=== PATIENT | female | born 1995 | race Caucasian/White ===

== ENCOUNTER 2019-02-18 22:58 | Emergency (ER) | payer BC, OTHER ==
[2019-02-18 23:07] VITALS: PULSE 78; RESP 18
[2019-02-19 01:02] LABS: Appearance,Urine Clear (Clear); Bacteria,Urine Rare /hpf; Bilirubin,Urine Negative (Negative); Blood,Urine Negative (Negative); Color,Urine Light Yellow; Glucose,Urine (UA) Negative (Negative); Ketones,Urine Negative (Negative); Leukocyte Esterase,Urine Small (Negative); Mucus,Urine Rare /hpf; Nitrite,Urine Negative (Negative); PH, Urine 7.5 (5.0-8.0); Protein,Urine Negative (Negative); RBC,Urine 1 /hpf (0-5); Squamous Epithelial Cell,Urine 1 /hpf (0-4); Urobilinogen,Urine <2.0 mg/dL (<2.0)
[2019-02-19] MEDS ORDERED: FLUCONAZOLE 150 MG TAB PO STA (01:10)
--- NOTE | 2019-02-19 01:12 | ED ---
General Adult HPI - General Chief complaint: Urogenital Stated complaint: Female /Pain Time Seen by Provider: 02/18/19 23:09 Source: patient Mode of arrival: ambulatory Limitations: no limitations - History of Present Illness Initial comments: 23-year-old female patient presents the emergency department today for evaluation of external vulvar itching, burning, and thick white vaginal discharge. Patient states that this started 2-3 days ago. Patient states that she started to feel more burning sensation today especially with urination. Patient denies any recent antibiotic or steroid use. Denies any history of yeast infection. States her as a possibility she may have an STD. She denies any chance of . Last menstrual period was 3 weeks ago. Patient denies any recent rash, fever, chills, shortness breath, chest pain, abdominal pain, nausea, vomiting, diarrhea, constipation, back pain, numbness, tingling, dizziness, weakness, headache, visual changes, or any other complaints. - Related Data Home Medications Medication Instructions Recorded Confirmed Pnv,Calcium 72/Iron/Folic Acid 1 tab PO DAILY 02/10/15 06/02/15 [Pnv Plus Multivit Tab] Previous Rx's Medication Instructions Recorded Sulfamethox-Tmp 800-160Mg [Bactrim 2 each PO Q12HR #56 tab 06/02/15 Ds] Fluconazole [Diflucan] 150 mg PO ONCE #1 tab 02/19/19 Allergies Allergy/AdvReac Type Severity Reaction Status Date / Time No Known Allergies Allergy Verified 02/18/19 23:07 Review of Systems ROS Statement: Those systems with pertinent positive or pertinent negative responses have been documented in the HPI. ROS Other: All systems not noted in ROS Statement are negative. Past Medical History Past Medical History: No Reported History History of Any Multi-Drug Resistant Organisms: MRSA Date of last positivie culture/infection: 01/17/13 MDRO Source:: MRSA on left side and on right pearce per patient Past Surgical History: Section Additional Past Surgical History / Comment(s): drainage of a right ovarian cyst Past Anesthesia/Blood Transfusion Reactions: No Reported Reaction Past Psychological History: No Psychological Hx Reported Smoking Status: Current every day smoker Past Alcohol Use History: None Reported Past Drug Use History: None Reported - Past Family History Mother Family Medical History: No Reported History General Exam Limitations: no limitations General appearance: alert, in no apparent distress, other (Physical well- developed, well-nourished adult female patient in no acute distress. Vital signs upon presentation are temperature 98.4F, pulse 78, respirations 18, blood pressure 123/76, pulse ox 99% on room air.) Eye exam: Present: normal appearance, PERRL, EOMI. Absent: scleral icterus, conjunctival injection, periorbital swelling ENT exam: Present: normal exam, normal oropharynx, mucous membranes moist Respiratory exam: Present: normal lung sounds bilaterally. Absent: respiratory distress, wheezes, rales, rhonchi, stridor Cardiovascular Exam: Present: regular rate, normal rhythm, normal heart sounds. Absent: systolic murmur, diastolic murmur, rubs, gallop, clicks GI/Abdominal exam: Present: soft, normal bowel sounds. Absent: distended, tenderness, guarding, rebound, rigid External exam: Present: erythema. Absent: swelling, lesions Speculum exam: Present: vaginal discharge (Thick, white vaginal discharge, cottage cheese appearance), other (No cervical erythema). Absent: normal speculum exam, cervical discharge, vaginal bleeding By manual exam: Present: normal by manual exam. Absent: cervical motion t enderness, adnexal tenderness Back exam: Present: normal inspection. Absent: CVA tenderness (R), CVA tenderness (L) Neurological exam: Present: alert, oriented X3, CN II-XII intact Psychiatric exam: Present: normal affect, normal mood Skin exam: Present: warm, dry, intact, normal color. Absent: rash Course Vital Signs 02/18/19 02/19/19 23:04 01:27 Temperature 98.4 F 98.2 F Pulse Rate 78 78 Respiratory 18 18 Rate Blood Pressure 123/76 117/75 O2 Sat by Pulse 99 97 Oximetry Medical Decision Making - Medical Decision Making 23-year-old female patient presents to the emergency department today for evaluation of external vulvar itching and burning as well as quite vaginal discharge. Physical examination did reveal erythema to the labia minora. Speculum exam did reveal evidence of cottage cheese like vaginal discharge. No cervicitis. There is no cervical motion tenderness no adnexal tenderness. She is afebrile. HCG is negative. Trichomonas test was negative and remaining genital cultures are pending. Patient symptoms are consistent with yeast infection. She'll be given a dose of Diflucan here in the emergency department. She'll be given a prescription for repeat dose for 3 days from now. She is instructed to follow-up with her ECONOMICS LECTURER for recheck as soon as possible. Return parameters were discussed in detail. She verbalizes understanding and agrees with this plan. - Lab Data Lab Results 02/19/19 02/19/19 02/19/19 Range/Units 00:00 00:00 00:00 Urine Color Light Yellow Urine Appearance Clear (Clear) Urine pH 7.5 (5.0-8.0) Ur Specific [place] 1.010 (1.001-1.035) Urine Protein Negative (Negative) Urine Glucose (UA) Negative (Negative) Urine Ketones Negative (Negative) Urine Blood Negative (Negative) Urine Nitrite Negative (Negative) Urine Bilirubin Negative (Negative) Urine Urobilinogen <2.0 (<2.0) mg/dL Ur Leukocyte Esterase Small H (Negative) Urine RBC 1 (0-5) /hpf Urine WBC 1 (0-5) /hpf Ur Squamous Epith Cells 1 (0-4) /hpf Urine Bacteria Rare H (None) /hpf Urine Mucus Rare H (None) /hpf Urine HCG, Qual Not Detected (Not Detectd) Trichomonas Ag (Rapid) Negative (Negative) Disposition Clinical Impression: Vulvovaginal candidiasis Disposition: HOME SELF-CARE Condition: Good Instructions (If sedation given, give patient instructions): Yeast Infection (ED) Additional Instructions: Take medications as directed. Avoid itching the area. He can purchase topical [id number] anti-itch cream. Take cool baths and apply cool compresses for stinging sensation. Return to the emergency department immediately for any new, worsening, or concerning symptoms. Prescriptions: Fluconazole [Diflucan] 150 mg PO ONCE #1 tab Is patient prescribed a controlled substance at d/c from ED?: No Referrals: None,Stated [Primary Care Provider] - 1-2 days Time of Disposition: 01:12
[2019-02-19 01:29] VITALS: BP 117/75; TEMP 98.2
[2019-02-20 16:32] LABS: C. trachomatis,PCR Negative (Neg,Equiv); Chlamydia trachomatis Source Vagina; N. gonorrhoeae,PCR Negative (Neg,Equiv); Neisseria Source Vagina
== END 2019-02-19 01:29 | disposition home or self-care (01) ==
LOC: EC 22:58
DX: B37.3 Candidiasis of vulva and vagina (principal); F17.200 Nicotine dependence, unspecified, uncomplicated; Z79.899 Other long term (current) drug therapy; Z87.42 Personal history of other diseases of the female genital tract; Z98.890 Other specified postprocedural states
CPT/HCPCS: 81001; 81025; 87070; 87205; 87491; 87591; 87808; 99283

== ENCOUNTER 2019-02-23 15:39 | Emergency (ER) | payer OTHER ==
[2019-02-23 17:13] VITALS: RESP 16
[2019-02-23 18:25] LABS: Appearance,Urine Clear (Clear); Bilirubin,Urine Negative (Negative); Blood,Urine Negative (Negative); Color,Urine Light Yellow; Glucose,Urine (UA) Negative (Negative); Ketones,Urine Negative (Negative); Leukocyte Esterase,Urine Negative (Negative); Nitrite,Urine Negative (Negative); PH, Urine 6.5 (5.0-8.0); Protein,Urine Negative (Negative); Specific Gravity,Urine 1.018 (1.001-1.035); Urobilinogen,Urine <2.0 mg/dL (<2.0)
[2019-02-23 18:28] LABS: Basophils # (A) 0.1 k/uL (0-0.2); Basophils % (A) 1 %; Eosinophils # (A) 0.4 k/uL (0-0.7); Eosinophils % (A) 5 %; HCT 46.1 % (34.0-46.0); HGB 15.4 gm/dL (11.4-16.0); Lymphocytes # (A) 2.8 k/uL (1.0-4.8); Lymphocytes % (A) 31 %; MCH 30.2 pg (25.0-35.0); MCHC 33.4 g/dL (31.0-37.0); MCV 90.4 fL (80.0-100.0); Mean Platelet Volume 7.9; Monocytes # (A) 0.5 k/uL (0-1.0); Monocytes % (A) 6 %; Neutrophils % (A) 56 %; Platelet Count 208 k/uL (150-450); RDW 13.7 % (11.5-15.5)
[2019-02-23 18:43] LABS: ALT 17 U/L (9-52); AST 17 U/L (14-36); African American GFR (CKD) >90 (>60 ml/min/1.73 sqM); Albumin 4.9 g/dL (3.5-5.0); Alkaline Phosphatase 54 U/L (38-126); Amylase 68 U/L (30-110); Anion Gap 11 mmol/L; Blood Urea Nitrogen 17 mg/dL (7-17); Calcium 10.2 mg/dL (8.4-10.2); Carbon Dioxide 26 mmol/L (22-30); Chloride 103 mmol/L (98-107); Glucose 84 mg/dL (74-99); Lipase 123 U/L (23-300); Potassium 4.4 mmol/L (3.5-5.1); Sodium 140 mmol/L (137-145); Total Bilirubin 0.5 mg/dL (0.2-1.3); Total Protein 7.9 g/dL (6.3-8.2)
[2019-02-23] MEDS ORDERED: MORPHINE SULFATE 4 MG/ML SYRINGE IV STA (18:46)
[2019-02-23 20:21] VITALS: TEMP 98.2
--- NOTE | 2019-02-23 22:23 | US ---
EXAMINATION TYPE: US transvaginal pelvis plus Doppler DATE OF EXAM: 02/23/2019 COMPARISON: None CLINICAL HISTORY: 22-year-old female with pain. Left-sided pelvic pain x 1 week. Worse today. No blee ding. 1 . Cyst drained 2012. . TECHNIQUE: Transvaginal (TV). Color Doppler and spectral waveform analysis of the ovarian arteries and veins. Date of LMP: 01/27/2019 FINDINGS: EXAM MEASUREMENTS: Uterus: 8.9 x 4.5 x 4.0 cm Endometrial Stripe: 1.22 cm Right Ovary: 3.7 x 2.6 x 1.7 cm for a volume of 8.4 mL. Left Ovary: 4.9 x 4.5 x 4.7 cm for a volume of 54.2 mL. 1. Uterus: Anteverted. There is a 4 mm calcification along the lower uterine segment near the straig ht, possible dystrophic calcification as a sequela of prior infection or surgery. Control Cabinet Assembler notes: ?Prominent vessels seen left of uterus. 5 mm cervical nabothian cysts noted. 2. Endometrium: Normal for secretory phase of the menstrual cycle. 3. Right Ovary: appears wnl, follicles seen 4. Left Ovary: Complex area with debris seen within left ovary measurin.4 x 4.0 x 4.3 cm. Areas of echogenicity, reticular change in hypoechogenicity are demonstrated. Spectral, color and waveform doppler imaging shows good arterial and venous flow within the ovaries ; there is no evidence for ovarian torsion. 5. Bilateral Adnexa: Complex area seen involving left ovary as mentioned above. 6. Posterior cul-de-sac: minimal fluid seen. IMPRESSION: 1. No sonographic evidence for ovarian torsion. 2. Left ovary enlarged secondary to a complex lesion measuring 4.4 cm. Given some internal reticulati ons and areas of echogenicity, a hemorrhagic cyst is suspected. Follow-up in 6-8 weeks to assess for involution. If the finding persists, an ovarian dermoid would be an additional differential considera tion.
--- NOTE | 2019-02-23 23:03 | ED ---
General Adult HPI - General Chief complaint: Abdominal Pain Stated complaint: female Time Seen by Provider: 02/23/19 18:40 Source: patient, RN notes reviewed, old records reviewed Mode of arrival: ambulatory Limitations: no limitations - History of Present Illness Initial comments: 23-year-old female patient, the past no history of right ovarian cyst drainage is present ED with left adnexal pain. Patient reports that this has been going on for 1 day. Patient reports that this feels similar to a ovarian cyst that she had on her right side. Patient denies abdominal pain. Patient denies any nausea vomiting or diarrhea. Denies any chest pain shortness breath denies any other complaints. Patient states that she is not . Denies any concern for STD or urinary tract infection. Systemic: Pt denies fatigue, fever/chills, rash. Pt denies weakness, night sweats, weight loss. Neuro: Pt denies headache, visual disturbances, syncope or pre-syncope. HEENT: Pt denies ocular discharge or irritation, otalgia, rhinorrhea, pharyng itis or notable lymphadenopathy. Cardiopulmonary: Pt denies chest pain, SOB, heart palpitations, dyspnea on exertion. Abdominal/GI: Pt denies abdominal pain, n/v/d. : Pt denies dysuria, burning w/ urination, frequency/urgency. Denies new onset urinary or bowel incontinence. MSK: Pt denies myalgia, loss of strength or function in extremities. Neuro: Pt denies new onset weakness, paresthesias. - Related Data Home Medications Medication Instructions Recorded Confirmed Pnv,Calcium 72/Iron/Folic Acid 1 tab PO DAILY 02/10/15 06/02/15 [Pnv Plus Multivit Tab] Previous Rx's Medication Instructions Recorded Sulfamethox-Tmp 800-160Mg [Bactrim 2 each PO Q12HR #56 tab 06/02/15 Ds] Fluconazole [Diflucan] 150 mg PO ONCE #1 tab 02/19/19 Allergies Allergy/AdvReac Type Severity Reaction Status Date / Time No Known Allergies Allergy Verified 02/23/19 17:13 Review of Systems ROS Statement: Those systems with pertinent positive or pertinent negative responses have been documented in the HPI. ROS Other: All systems not noted in ROS Statement are negative. Past Medical History Past Medical History: No Reported History History of Any Multi-Drug Resistant Organisms: MRSA Date of last positivie culture/infection: 01/17/13 MDRO Source:: MRSA on left side and on right pearce per patient Past Surgical History: Section Additional Past Surgical History / Comment(s): drainage of a right ovarian cyst Past Anesthesia/Blood Transfusion Reactions: No Reported Reaction Past Psychological History: No Psychological Hx Reported Smoking Status: Current every day smoker Past Alcohol Use History: None Reported Past Drug Use History: None Reported - Past Family History Mother Family Medical History: No Reported History General Exam - General Exam Comments Initial Comments: Constitutional: NAD, AOX3, Pt has pleasant affect. HEENT: NC/AT, trachea midline, neck supple, no lymphadenopathy. Posterior pharynx non erythematous, without exudates. External ears appear normal, without discharge. Mucous membranes moist. Eyes PERRLA, EOM intact. There is no scleral icterus. No pallor noted. Cardiopulmonary: RRR, no murmurs, rubs or gallops, no JVD noted. Lungs CTAB in anterior and posterior bond. No peripheral edema. Abdominal exam: Abdomen soft and non-distended. Abdomen non-tender to palpation in all 4 quadrants. Left adnexal region mildly tender to palpation. Right adnexal region nontender to palpation. No guarding or rigidity no ecchymoses. Bowel sounds active in LLQ. No hepatosplenomegaly. No ecchymosis Neuro: CN II-XII grossly intact. No nuchal rigidity. No raccon eyes, no lambert sign, no hemotympanum. No cervical spinal tenderness. MSK: No posterior calf tenderness bilaterally, homans sign negative bilaterally. Posterior tibialis and radial pulse +2 bilaterally. Sensation intact in upper and lower extremities. Full active ROM in upper and lower extremities, 5/5 stregnth. Limitations: no limitations Course Vital Signs 02/23/19 02/23/19 02/23/19 17:11 20:13 23:11 Temperature 99.1 F 98.2 F 98.2 F Pulse Rate 68 55 L 68 Respiratory 16 16 16 Rate Blood Pressure 119/74 110/70 122/77 O2 Sat by Pulse 100 99 99 Oximetry Medical Decision Making - Medical Decision Making 23-year-old female patient presents ED with 1 day of left adnexal pain. Patient vital signs stable, afebrile. Physical exam displayed left adnexal region mildly tender to palpation. Laboratory investigations are non-impressive, hCG was negative. UA was negative. Transvaginal ultrasound displayed a 4 cm left hemorrhagic cyst. No signs of torsion. Patient will be discharged with outpatient TRANSMISSION WORKER follow-up. Return precautions discused, pt verbalize understanding. Case discussed with Dr. Bower. - Lab Data Result diagrams: 02/23/19 18:00 02/23/19 18:00 Lab Results 02/23/19 02/23/19 02/23/19 Range/Units 18:00 18:00 18:00 WBC 9.0 (3.8-10.6) k/uL RBC 5.10 (3.80-5.40) m/uL Hgb 15.4 (11.4-16.0) gm/dL Hct 46.1 H (34.0-46.0) % MCV 90.4 (80.0-100.0) fL MCH 30.2 (25.0-35.0) pg MCHC 33.4 (31.0-37.0) g/dL RDW 13.7 (11.5-15.5) % Plt Count 208 (150-450) k/uL Neutrophils % 56 % Lymphocytes % 31 % Monocytes % 6 % Eosinophils % 5 % Basophils % 1 % Neutrophils # 5.0 (1.3-7.7) k/uL Lymphocytes # 2.8 (1.0-4.8) k/uL Monocytes # 0.5 (0-1.0) k/uL Eosinophils # 0.4 (0-0.7) k/uL Basophils # 0.1 (0-0.2) k/uL Sodium 140 (137-145) mmol/L Potassium 4.4 (3.5-5.1) mmol/L Chloride 103 (98-107) mmol/L Carbon Dioxide 26 (22-30) mmol/L Anion Gap 11 mmol/L BUN 17 (7-17) mg/dL Creatinine 0.77 (0.52-1.04) mg/dL Est GFR (CKD-EPI)AfAm >90 (>60 ml/min/1.73 sqM) Est GFR (CKD-EPI)NonAf >90 (>60 ml/min/1.73 sqM) Glucose 84 (74-99) mg/dL Calcium 10.2 (8.4-10.2) mg/dL Total Bilirubin 0.5 (0.2-1.3) mg/dL AST 17 (14-36) U/L ALT 17 (9-52) U/L Alkaline Phosphatase 54 (38-126) U/L Total Protein 7.9 (6.3-8.2) g/dL Albumin 4.9 (3.5-5.0) g/dL Amylase 68 (30-110) U/L Lipase 123 (23-300) U/L Urine Color Light Yellow Urine Appearance Clear (Clear) Urine pH 6.5 (5.0-8.0) Ur Specific [place] 1.018 (1.001-1.035) Urine Protein Negative (Negative) Urine Glucose (UA) Negative (Negative) Urine Ketones Negative (Negative) Urine Blood Negative (Negative) Urine Nitrite Negative (Negative) Urine Bilirubin Negative (Negative) Urine Urobilinogen <2.0 (<2.0) mg/dL Ur Leukocyte Esterase Negative (Negative) Urine HCG, Qual (Not Detectd) 02/23/19 Range/Units 18:00 WBC (3.8-10.6) k/uL RBC (3.80-5.40) m/uL Hgb (11.4-16.0) gm/dL Hct (34.0-46.0) % MCV (80.0-100.0) fL MCH (25.0-35.0) pg MCHC (31.0-37.0) g/dL RDW (11.5-15.5) % Plt Count (150-450) k/uL Neutrophils % % Lymphocytes % % Monocytes % % Eosinophils % % Basophils % % Neutrophils # (1.3-7.7) k/uL Lymphocytes # (1.0-4.8) k/uL Monocytes # (0-1.0) k/uL Eosinophils # (0-0.7) k/uL Basophils # (0-0.2) k/uL Sodium (137-145) mmol/L Potassium (3.5-5.1) mmol/L Chloride (98-107) mmol/L Carbon Dioxide (22-30) mmol/L Anion Gap mmol/L BUN (7-17) mg/dL Creatinine (0.52-1.04) mg/dL Est GFR (CKD-EPI)AfAm (>60 ml/min/1.73 sqM) Est GFR (CKD-EPI)NonAf (>60 ml/min/1.73 sqM) Glucose (74-99) mg/dL Calcium (8.4-10.2) mg/dL Total Bilirubin (0.2-1.3) mg/dL AST (14-36) U/L ALT (9-52) U/L Alkaline Phosphatase (38-126) U/L Total Protein (6.3-8.2) g/dL Albumin (3.5-5.0) g/dL Amylase (30-110) U/L Lipase (23-300) U/L Urine Color Urine Appearance (Clear) Urine pH (5.0-8.0) Ur Specific [place] (1.001-1.035) Urine Protein (Negative) Urine Glucose (UA) (Negative) Urine Ketones (Negative) Urine Blood (Negative) Urine Nitrite (Negative) Urine Bilirubin (Negative) Urine Urobilinogen (<2.0) mg/dL Ur Leukocyte Esterase (Negative) Urine HCG, Qual Not Detected (Not Detectd) Disposition Clinical Impression: Ovarian cyst Disposition: HOME SELF-CARE Condition: Stable Instructions (If sedation given, give patient instructions): Ovarian Cyst (ED) Additional Instructions: Patient to adhere to previously discussed treatment plan and will take medication(s) as directed. Patient to follow up with PCP in 1-2 days. Patient to return to ED if symptoms do not improve. Follow-up with TRANSMISSION WORKER tomorrow. Use ibuprofen as needed for pain. Return to ER if condition worsens in any way. Is patient prescribed a controlled substance at d/c from ED?: No Referrals: None,Stated [Primary Care Provider] - 1-2 days Kaity Zavaleta DO [Doctor of Osteopathic Medicine] - 1-2 days
[2019-02-23 23:12] VITALS: BP 122/77; PULSE 68
== END 2019-02-23 23:12 | disposition home or self-care (01) ==
LOC: EC 15:39
DX: N83.202 Unspecified ovarian cyst, left side (principal); F17.200 Nicotine dependence, unspecified, uncomplicated
CPT/HCPCS: 36415; 80053; 82150; 83690; 85025; 81003; 81025; 93975; 76830; 99285; 96374; J2270

== ENCOUNTER 2019-02-25 15:09 | Emergency (ER) | payer OTHER ==
[2019-02-25 15:30] VITALS: RESP 18; TEMP 99.2
[2019-02-25] MEDS ORDERED: Acetaminophen-Codeine 300-30mg TAB PO STA (16:58)
[2019-02-25] MEDS ORDERED: ACET/COD 300 MG/30 MG STARTER PACK 6 TAB BTL PO STA (16:58)
[2019-02-25] MEDS ORDERED: KETOROLAC 60 MG/2 ML VIAL IM STA (16:58)
--- NOTE | 2019-02-25 17:00 | ED ---
Abdominal Pain HPI - General Chief Complaint: Abdominal Pain Stated Complaint: Ovarian cyst Time Seen by Provider: 02/25/19 16:14 Source: patient, RN notes reviewed, old records reviewed Mode of arrival: ambulatory Limitations: no limitations - History of Present Illness Initial Comments: This is a 23-year-old female the ER for evaluation. She presents today for evaluation regards to abdominal pain recurrent or persistent abdominal pain related to ovarian cyst hemorrhagic ovarian cyst known. 2 ER visits in the last week for evaluation of same. Unable to get to see OB. Patient states the pain is making her have difficulty with work. On menses no document no recent sexual activity. No dysuria or difficulty with bowel movements. Patient a Motrin at home, no other complaints MD Complaint: abdominal pain (Suprapubic just like prior evaluations concerning ovarian cyst) -: week(s) Location: suprapubic Radiation: suprapubic Migration to: suprapubic Severity: mild Severity scale (1-10): 3 Quality: aching Consistency: constant Improves With: nothing Worsens With: nothing Associated Symptoms: nausea Treatments Prior to Arrival: NSAIDs - Related Data Home Medications Medication Instructions Recorded Confirmed Ibuprofen [Motrin] 800 mg PO TID PRN 02/25/19 02/25/19 Allergies Allergy/AdvReac Type Severity Reaction Status Date / Time No Known Allergies Allergy Verified 02/25/19 15:44 Review of Systems ROS Statement: Those systems with pertinent positive or pertinent negative responses have been documented in the HPI. ROS Other: All systems not noted in ROS Statement are negative. Past Medical History Past Medical History: No Reported History History of Any Multi-Drug Resistant Organisms: MRSA Date of last positivie culture/infection: 01/17/13 MDRO Source:: MRSA on left side and on right pearce per patient Past Surgical History: Section Additional Past Surgical History / Comment(s): drainage of a right ovarian cyst Past Anesthesia/Blood Transfusion Reactions: No Reported Reaction Past Psychological History: No Psychological Hx Reported Smoking Status: Current every day smoker Past Alcohol Use History: None Reported Past Drug Use History: None Reported - Past Family History Mother Family Medical History: No Reported History General Exam Limitations: no limitations General appearance: alert, in no apparent distress Head exam: Present: atraumatic, normocephalic, normal inspection Eye exam: Present: normal appearance, PERRL, EOMI. Absent: scleral icterus, conjunctival injection, periorbital swelling ENT exam: Present: normal exam, mucous membranes moist Neck exam: Present: normal inspection. Absent: tenderness, meningismus, lymphadenopathy Respiratory exam: Present: normal lung sounds bilaterally. Absent: respiratory distress, wheezes, rales, rhonchi, stridor Cardiovascular Exam: Present: regular rate, normal rhythm, normal heart sounds. Absent: systolic murmur, diastolic murmur, rubs, gallop, clicks GI/Abdominal exam: Present: soft, tenderness (Suprapubic tenderness), normal bowel sounds. Absent: distended, guarding, rebound, rigid Extremities exam: Present: normal inspection, full ROM, normal capillary refill. Absent: tenderness, pedal edema, joint swelling, calf tenderness Back exam: Present: normal inspection Neurological exam: Present: alert, oriented X3, CN II-XII intact Psychiatric exam: Present: normal affect, normal mood Skin exam: Present: warm, dry, intact, normal color. Absent: rash Course Vital Signs 02/25/19 15:26 Temperature 99.2 F Pulse Rate 91 Respiratory 18 Rate Blood Pressure 149/78 O2 Sat by Pulse 100 Oximetry - Reevaluation(s) Reevaluation #1: 02/25/19 16:59 Medical record is reviewed Reevaluation #2: 02/25/19 17:00 Patient has adequate pain control Medical Decision Making - Medical Decision Making 23 female the ER for evaluation. Patient has persistent pain from ovarian cyst hemorrhagic, will follow up with OB for definitive treatment. Disposition Clinical Impression: Ovarian cyst, Hemorrhagic ovarian cyst Disposition: HOME SELF-CARE Condition: Good Instructions (If sedation given, give patient instructions): Ovarian Cyst (ED), Ruptured Ovarian Cyst (ED) Is patient prescribed a controlled substance at d/c from ED?: No Referrals: None,Stated [Primary Care Provider] - 1-2 days
[2019-02-25 17:55] VITALS: BP 118/70; PULSE 72
== END 2019-02-25 17:54 | disposition home or self-care (01) ==
LOC: EC 15:09
DX: N83.201 Unspecified ovarian cyst, right side (principal); F17.200 Nicotine dependence, unspecified, uncomplicated; Z86.14 Personal history of Methicillin resistant Staphylococcus aureus infection
CPT/HCPCS: 99284; 96372; J1885

== ENCOUNTER → 2019-03-23 | Outpatient (CLI) | payer OTHER ==
[2019-03-23 13:50] LABS: Basophils % (A) 1 %; Eosinophils # (A) 0.4 k/uL (0-0.7); Eosinophils % (A) 5 %; HCT 45.2 % (34.0-46.0); HGB 15.2 gm/dL (11.4-16.0); Lymphocytes # (A) 2.3 k/uL (1.0-4.8); Lymphocytes % (A) 31 %; MCH 30.8 pg (25.0-35.0); MCHC 33.5 g/dL (31.0-37.0); MCV 91.8 fL (80.0-100.0); Mean Platelet Volume 7.8; Monocytes # (A) 0.4 k/uL (0-1.0); Monocytes % (A) 5 %; Neutrophils # (A) 4.2 k/uL (1.3-7.7); Neutrophils % (A) 56 %; Platelet Count 204 k/uL (150-450); RBC 4.93 m/uL (3.80-5.40); RDW 13.7 % (11.5-15.5); WBC 7.5 k/uL (3.8-10.6)
== END | disposition home or self-care (01) ==
LOC: LABWHC1 13:06
PROVIDERS: ATTEND Obstetrics & Gynecology
DX: Z01.812 Encounter for preprocedural laboratory examination (principal)
CPT/HCPCS: 36415; 85025

== ENCOUNTER 2019-04-02 08:06 | Day surgery (SDC) | payer OTHER ==
[2019-03-27 10:50] VITALS: BMI 22.1
--- NOTE | 2019-04-01 17:32 | P.HPOB ---
History of Present Illness H&P Date: 04/01/19 Chief Complaint: Left ovarian cyst 23-year-old presents for laparoscopic aspiration of left ovarian cyst. She's had laparoscopic surgery before for endometriosis and another endometrioma. I suspect this is an endometrioma and it needs to be drained. Review of Systems All systems: negative Constitutional: Denies chills, Denies fever Eyes: denies blurred vision, denies pain Ears, nose, mouth and throat: Denies headache, Denies sore throat Cardiovascular: Denies chest pain, Denies shortness of breath Respiratory: Denies cough Gastrointestinal: Denies abdominal pain, Denies diarrhea, Denies nausea, Denies vomiting Genitourinary: Denies dysuria, Denies hematuria Musculoskeletal: Denies myalgias Integumentary: Denies pruritus, Denies rash Neurological: Denies numbness, Denies weakness Psychiatric: Denies anxiety, Denies depression Endocrine: Denies fatigue, Denies weight change Past Medical History Past Medical History: No Reported History Additional Past Medical History / Comment(s): MIGRAINES, LEFT OVARIAN CYST. History of Any Multi-Drug Resistant Organisms: MRSA Date of last positivie culture/infection: 01/17/13 MDRO Source:: MRSA on left side , right pearce & face Past Surgical History: Adenoidectomy, Section, Tonsillectomy Additional Past Surgical History / Comment(s): drainage of a right ovarian cyst Past Anesthesia/Blood Transfusion Reactions: No Reported Reaction Past Psychological History: Anxiety, Depression Additional Psychological History / Comment(s): states anxiety and depression but no meds. Smoking Status: Current every day smoker Past Alcohol Use History: None Reported Additional Past Alcohol Use History / Comment(s): smokes 6 cigarettes per day, smoking since 18 years old. Past Drug Use History: None Reported - Past Family History Mother Family Medical History: No Reported History Medications and Allergies Home Medications Medication Instructions Recorded Confirmed Type Ibuprofen 200 mg PO DIRECTED PRN 03/27/19 03/27/19 History L.acidoph,Paracasei, B.lactis 1 each PO DAILY 03/27/19 03/27/19 History [Probiotic] Allergies Allergy/AdvReac Type Severity Reaction Status Date / Time No Known Allergies Allergy Verified 03/27/19 10:26 Exam Osteopathic Statement: *. No significant issues noted on an osteopathic structural exam other than those noted in the History and Physical/Consult. Heart: Regular rate and rhythm Lungs: Clear to auscultation bilaterally Abdomen: Soft, tender Extremities: Negative Homans sign Assessment and Plan (1) Left ovarian cyst Narrative/Plan: Suspect endometrioma Status: Acute Code(s): N83.202 - UNSPECIFIED OVARIAN CYST, LEFT SIDE SNOMED Code(s): 61379623 (2) Pelvic pain Status: Acute Code(s): R10.2 - PELVIC AND PERINEAL PAIN SNOMED Code(s): 44304182 Plan: 1. Laparoscopic aspiration of left ovarian cyst
[~2019-04-02 08:06] MED LIST: DEXAMETHASONE SOD PHOSPHATE 10 MG/ML 1 ML VIAL IV ONE; HYDROmorphone 0.5 MG/0.5 ML SYRINGE IVP PRN; LACTATED RINGERS 1,000 ML IV SCH; MIDAZOLAM 2 MG/2 ML VIAL IV PRN; ONDANSETRON 4 MG/2 ML VIAL IVP ONE; Pre Op ABX Message 1 EACH MISC MISCELLANE ONE
[2019-04-02] MEDS ORDERED: LIDOCAINE 1% 20 ML VIAL (10MG/ML) FOR IV START INTRADERMA ONE (08:26)
[2019-04-02] MEDS ORDERED: LACTATED RINGERS 1,000 ML IV ONE (08:30)
[2019-04-02] MEDS ORDERED: DEXAMETHASONE SOD PHOS (MDV) 100 MG/10 ML VIAL IVP ONE (08:30)
[2019-04-02] MEDS ORDERED: MIDAZOLAM 2 MG/2 ML VIAL ONE (09:00)
[2019-04-02] MEDS ORDERED: ROCURONIUM BROMIDE 10 MG/ML 10 ML VIAL IV ONE (09:00)
[2019-04-02] MEDS ORDERED: fentaNYL (PF) 50 MCG/ML 2 ML AMP ONE (09:00)
[2019-04-02] MEDS ORDERED: KETOROLAC 30 MG/ML 1 ML VIAL ONE (09:00)
[2019-04-02] MEDS ORDERED: PROPOFOL 10 MG/ML 20 ML VIAL IV ONE (09:00)
[2019-04-02] MEDS ORDERED: LIDOCAINE 1% INJ 10MG/ML (20 ML MDV) ONE (09:00)
[2019-04-02] MEDS ORDERED: GLYCOPYRROLATE 0.2 MG/ML 2 ML VIAL ONE (09:00)
[2019-04-02] MEDS ORDERED: NEOSTIGMINE 1 MG/ML 10 ML VIAL ONE (09:00)
[2019-04-02] MEDS ORDERED: BUPIVACAINE (PF) 0.25% 30 ML VIAL SQ ONE ×2 (09:32)
[2019-04-02 10:23] VITALS: TEMP 98.5
--- NOTE | 2019-04-02 10:28 | P.OP ---
Date of Procedure: 04/02/19 Preoperative Diagnosis: 1. Pelvic pain 2. left ovarian cyst-suspect endometrioma Postoperative Diagnosis: 1. Pelvic pain 2. endometriosis Procedure(s) Performed: Diagnostic laparoscopy with cauterization of endometriosis Anesthesia: [place] Surgeon: Kaity Zavaleta Estimated Blood Loss (ml): 5 IV fluids (ml): 500 Urine output (ml): 75 Pathology: none sent Condition: stable Disposition: PACU Operative Findings: Normal uterus, tubes, ovaries. The uterus sounded to 9 cm. No cysts were found on either ovary. A few filmy adhesions were noted in the right ovarian fossa connecting the right ovary to the peritoneum. Small amounts of endometriosis were seen in the bilateral ovarian fossa and on the right uterosacral ligament. These areas were cauterized with the Bovie. Description of Procedure: Patient is taken the operating room and general anesthesia was obtained without difficulty. She is prepped and draped in normal sterile fashion dorsal lithotomy position, legs placed in the Juan Jose stirrups. Bladder was drained of all urine. Weighted speculum placed in the vagina the anterior lip the cervix was grasped with single-tooth tenaculum. The uterus sounded to 9 cm and then the kroner manipulator was placed. Attention was then turned to the abdomen and gloves were changed. A 10 mm infraumbilical incision was made the scalpel and 10 mm optical trocar was placed under direct visualization. A 5 mm suprapubic incision was made and a 5 mm optical trocar was placed under direct visualization. Survey of the pelvis revealed a normal-appearing uterus, normal- appearing fallopian tubes, normal-appearing ovaries. There were no cysts on either ovary. Small amounts of endometriosis were seen in the bilateral ovarian fossa and on the right uterosacral ligament. These areas were cauterized with the hook cautery. All instruments were then removed from the abdomen and pelvis. The 10 mm infraumbilical incision was closed first with 0 Vicryl and the fascial layer and then 4-0 Vicryl subcuticular fashion. The 5 mm incision was closed with 4-0 Vicryl subcuticular fashion. Patient tolerated the procedure well. Sponge and instrument counts correct 2. She was taken to recovery in stable condition.
[2019-04-02 11:32] VITALS: RESP 18
[2019-04-02] MEDS ORDERED: Acetaminophen-Codeine 300-30mg TAB PO ONE (11:41)
[2019-04-02 11:53] VITALS: BP 113/71; PULSE 59
== END 2019-04-02 12:16 | disposition home or self-care (01) ==
LOC: OR 08:06
PROVIDERS: ATTEND Obstetrics & Gynecology
DX: N80.1 Endometriosis of ovary (principal); Z86.14 Personal history of Methicillin resistant Staphylococcus aureus infection; F41.9 Anxiety disorder, unspecified; F32.9 Major depressive disorder, single episode, unspecified; F17.210 Nicotine dependence, cigarettes, uncomplicated
CPT/HCPCS: 81025; 58662; J2250; J2710; J2405; J2001; J3010; J1885; J1100; J2704

== ENCOUNTER 2019-07-17 20:09 | Emergency (ER) | payer OTHER ==
[2019-07-17] MEDS ORDERED: SODIUM CHLORIDE 0.9% 1,000 ML IV ONE (20:33)
--- NOTE | 2019-07-17 20:34 | ED ---
Nausea/Vomiting/Diarrhea HPI - General Chief complaint: Nausea/Vomiting/Diarrhea Stated complaint: Vomiting Time Seen by Provider: 07/17/19 20:12 Source: patient Mode of arrival: ambulatory Limitations: no limitations - History of Present Illness Initial comments: 23-year-old female presenting today for chief complaint of nausea and diarrhea 2 weeks. Patient states she has had nausea and diarrhea for the past 2 weeks. She states she has taken multiple tests at home which were found to be negative. Patient states she feels . Patient denies any abdominal pain she denies any chest pain shortness of breath vaginal bleeding. Patient denies any vaginal discharge ,fevers. Patient denies dysuria, urgency frequency. Remaining ROS (-) upon arrival patient appears well there is no signs of acute distress. - Related Data Home Medications Medication Instructions Recorded Confirmed Ibuprofen 200 mg PO DIRECTED PRN 03/27/19 04/02/19 L.acidoph,Paracasei, B.lactis 1 each PO DAILY 03/27/19 04/02/19 [Probiotic] Previous Rx's Medication Instructions Recorded Acetaminophen-Codeine 300-30mg 2 tab PO Q6H PRN #20 tablet 04/02/19 [Tylenol #3] Ibuprofen [Motrin] 600 mg PO Q6HR PRN #30 tab 04/02/19 Allergies Allergy/AdvReac Type Severity Reaction Status Date / Time No Known Allergies Allergy Verified 04/02/19 08:24 Review of Systems ROS Statement: Those systems with pertinent positive or pertinent negative responses have been documented in the HPI. ROS Other: All systems not noted in ROS Statement are negative. 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 Past Anesthesia/Blood Transfusion Reactions: No Reported Reaction Past Psychological History: Anxiety, Depression Smoking Status: Current every day smoker Past Alcohol Use History: None Reported Past Drug Use History: None Reported - Past Family History Mother Family Medical History: No Reported History General Exam - General Exam Comments Initial Comments: General: The patient is awake and alert, in no distress, and does not appear acutely ill. Eye: +3 mm pupils are equal, round and reactive to light, extra-ocular movements are intact. No nystagmus. There is normal conjunctiva bilaterally. No signs of icterus. Ears, nose, mouth and throat: There are moist mucous membranes and no oral lesions. Cardiovascular: There is a regular rate and rhythm. No murmur, rub or gallop is appreciated. Respiratory: Lungs are clear to auscultation, respirations are non-labored, breath sounds are equal. No wheezes, stridor, rales, or rhonchi. Gastrointestinal: Soft, non-distended, non-tender abdomen without masses or organomegaly noted. There is no rebound or guarding present. Musculoskeletal: Normal ROM, no tenderness. Strength 5/5. Sensation intact. Radial pulses equal bilaterally 2+. Neurological: A&O x 3. CN II-XII intact grossly, There are no obvious motor or sensory deficits. Coordination appears grossly intact. Speech is normal. Skin: Skin is warm and dry and no rashes or lesions are noted. Psychiatric: Cooperative, appropriate mood & affect, normal judgment. Limitations: no limitations Course Vital Signs 07/17/19 07/17/19 20:13 22:05 Temperature 98.7 F 98.3 F Pulse Rate 61 78 Respiratory 18 17 Rate Blood Pressure 119/73 120/70 O2 Sat by Pulse 99 98 Oximetry Medical Decision Making - Medical Decision Making Very well-appearing 23-year-old female. History of endometriosis. Benign abdominal exam. Laboratory studies stable nose clinical signs of dehydration. HCG negative including serum. Patient provided a starter pack for Zofran. I discussed the case attending provider at this time I feel patient is stable for discharge with outpatient primary care follow-up and return parameters were discussed patient verbalized understanding and was discharged appearing well - Lab Data Result diagrams: 07/17/19 20:52 07/17/19 20:52 Lab Results 07/17/19 07/17/19 07/17/19 Range/Units 20:52 20:52 20:52 WBC 7.1 (3.8-10.6) k/uL RBC 4.94 (3.80-5.40) m/uL Hgb 15.4 (11.4-16.0) gm/dL Hct 44.0 (34.0-46.0) % MCV 89.1 (80.0-100.0) fL MCH 31.2 (25.0-35.0) pg MCHC 35.1 (31.0-37.0) g/dL RDW 11.8 (11.5-15.5) % Plt Count 212 (150-450) k/uL Neutrophils % 55 % Lymphocytes % 30 % Monocytes % 8 % Eosinophils % 4 % Basophils % 0 % Neutrophils # 3.9 (1.3-7.7) k/uL Lymphocytes # 2.2 (1.0-4.8) k/uL Monocytes # 0.6 (0-1.0) k/uL Eosinophils # 0.3 (0-0.7) k/uL Basophils # 0.0 (0-0.2) k/uL Sodium 142 (137-145) mmol/L Potassium 3.8 (3.5-5.1) mmol/L Chloride 106 (98-107) mmol/L Carbon Dioxide 26 (22-30) mmol/L Anion Gap 10 mmol/L BUN 9 (7-17) mg/dL Creatinine 0.83 (0.52-1.04) mg/dL Est GFR (CKD-EPI)AfAm >90 (>60 ml/min/1.73 sqM) Est GFR (CKD-EPI)NonAf >90 (>60 ml/min/1.73 sqM) Glucose 75 (74-99) mg/dL Calcium 9.5 (8.4-10.2) mg/dL Total Bilirubin 0.6 (0.2-1.3) mg/dL AST 21 (14-36) U/L ALT 23 (9-52) U/L Alkaline Phosphatase 47 (38-126) U/L Total Protein 7.3 (6.3-8.2) g/dL Albumin 4.5 (3.5-5.0) g/dL HCG, Qual Not Detected Urine Color Urine Appearance (Clear) Urine pH (5.0-8.0) Ur Specific [place] (1.001-1.035) Urine Protein (Negative) Urine Glucose (UA) (Negative) Urine Ketones (Negative) Urine Blood (Negative) Urine Nitrite (Negative) Urine Bilirubin (Negative) Urine Urobilinogen (<2.0) mg/dL Ur Leukocyte Esterase (Negative) Urine HCG, Qual Not Detected (Not Detectd) 07/17/19 Range/Units 20:52 WBC (3.8-10.6) k/uL RBC (3.80-5.40) m/uL Hgb (11.4-16.0) gm/dL Hct (34.0-46.0) % MCV (80.0-100.0) fL MCH (25.0-35.0) pg MCHC (31.0-37.0) g/dL RDW (11.5-15.5) % Plt Count (150-450) k/uL Neutrophils % % Lymphocytes % % Monocytes % % Eosinophils % % Basophils % % Neutrophils # (1.3-7.7) k/uL Lymphocytes # (1.0-4.8) k/uL Monocytes # (0-1.0) k/uL Eosinophils # (0-0.7) k/uL Basophils # (0-0.2) k/uL Sodium (137-145) mmol/L Potassium (3.5-5.1) mmol/L Chloride (98-107) mmol/L Carbon Dioxide (22-30) mmol/L Anion Gap mmol/L BUN (7-17) mg/dL Creatinine (0.52-1.04) mg/dL Est GFR (CKD-EPI)AfAm (>60 ml/min/1.73 sqM) Est GFR (CKD-EPI)NonAf (>60 ml/min/1.73 sqM) Glucose (74-99) mg/dL Calcium (8.4-10.2) mg/dL Total Bilirubin (0.2-1.3) mg/dL AST (14-36) U/L ALT (9-52) U/L Alkaline Phosphatase (38-126) U/L Total Protein (6.3-8.2) g/dL Albumin (3.5-5.0) g/dL HCG, Qual Urine Color Light Yellow Urine Appearance Clear (Clear) Urine pH 6.5 (5.0-8.0) Ur Specific [place] 1.005 (1.001-1.035) Urine Protein Negative (Negative) Urine Glucose (UA) Negative (Negative) Urine Ketones Negative (Negative) Urine Blood Negative (Negative) Urine Nitrite Negative (Negative) Urine Bilirubin Negative (Negative) Urine Urobilinogen <2.0 (<2.0) mg/dL Ur Leukocyte Esterase Negative (Negative) Urine HCG, Qual (Not Detectd) Disposition Clinical Impression: Diarrhea, Nausea Disposition: HOME SELF-CARE Condition: Good Instructions (If sedation given, give patient instructions): Acute Nausea and Vomiting (ED), Acute Diarrhea (ED) Additional Instructions: Please use medication as discussed. Please follow-up with family doctor in the next 2 days, and OBGYN. Please return to emergency room if the symptoms increase or worsen or for any other concerns. Is patient prescribed a controlled substance at d/c from ED?: No Referrals: None,Stated [Primary Care Provider] - 1-2 days [facility] Yahir grayson [NON-STAFF] - 1-2 days Time of Disposition: 21:21
[2019-07-17 21:05] LABS: Appearance,Urine Clear (Clear); Bilirubin,Urine Negative (Negative); Blood,Urine Negative (Negative); Color,Urine Light Yellow; Glucose,Urine (UA) Negative (Negative); Ketones,Urine Negative (Negative); Leukocyte Esterase,Urine Negative (Negative); Nitrite,Urine Negative (Negative); PH, Urine 6.5 (5.0-8.0); Protein,Urine Negative (Negative); Specific Gravity,Urine 1.005 (1.001-1.035); Urobilinogen,Urine <2.0 mg/dL (<2.0)
[2019-07-17 21:08] LABS: Basophils % (A) 0 %; Eosinophils # (A) 0.3 k/uL (0-0.7); Eosinophils % (A) 4 %; HGB 15.4 gm/dL (11.4-16.0); Lymphocytes # (A) 2.2 k/uL (1.0-4.8); Lymphocytes % (A) 30 %; MCH 31.2 pg (25.0-35.0); MCHC 35.1 g/dL (31.0-37.0); MCV 89.1 fL (80.0-100.0); Mean Platelet Volume 6.2; Monocytes # (A) 0.6 k/uL (0-1.0); Monocytes % (A) 8 %; Neutrophils # (A) 3.9 k/uL (1.3-7.7); Neutrophils % (A) 55 %; Platelet Count 212 k/uL (150-450); RBC 4.94 m/uL (3.80-5.40); RDW 11.8 % (11.5-15.5); WBC 7.1 k/uL (3.8-10.6)
[2019-07-17 21:16] LABS: HCG,Qualitative Serum Not Detected
[2019-07-17 21:20] LABS: ALT 23 U/L (9-52); AST 21 U/L (14-36); African American GFR (CKD) >90 (>60 ml/min/1.73 sqM); Albumin 4.5 g/dL (3.5-5.0); Alkaline Phosphatase 47 U/L (38-126); Anion Gap 10 mmol/L; Blood Urea Nitrogen 9 mg/dL (7-17); Calcium 9.5 mg/dL (8.4-10.2); Carbon Dioxide 26 mmol/L (22-30); Chloride 106 mmol/L (98-107); Glucose 75 mg/dL (74-99); Non-African American GFR(CKD) >90 (>60 ml/min/1.73 sqM); Potassium 3.8 mmol/L (3.5-5.1); Sodium 142 mmol/L (137-145); Total Bilirubin 0.6 mg/dL (0.2-1.3); Total Protein 7.3 g/dL (6.3-8.2)
[2019-07-17] MEDS ORDERED: ONDANSETRON 4 MG ODT STARTER PACK 2 TAB BTL PO STA (21:38)
[2019-07-17 22:06] VITALS: BP 120/70; PULSE 78; RESP 17; TEMP 98.3
== END 2019-07-17 22:05 | disposition home or self-care (01) ==
LOC: EC 20:09
DX: R19.7 Diarrhea, unspecified (principal); R11.0 Nausea; E86.0 Dehydration; Z32.02 Encounter for pregnancy test, result negative; F17.200 Nicotine dependence, unspecified, uncomplicated; Z87.42 Personal history of other diseases of the female genital tract; Z86.14 Personal history of Methicillin resistant Staphylococcus aureus infection; Z98.890 Other specified postprocedural states
CPT/HCPCS: 36415; 80053; 81003; 81025; 84703; 85025; 96360; 99284